=== PATIENT | female | born 1955 | race Hispanic/Latino ===

== ENCOUNTER → 2017-03-02 | Day surgery (SDC) | payer OTHER ==
[~2017-03-02] MED LIST: CALCIUM CARBON500 MG PO; CEFTRIAXONE SOD 1 GM VIAL ONE; DEXAMETHASONE SOD PHOS INJ 4 MG/ML VIAL IV ONE; FENTANYL CITRATE/PF 100MCG/2 ML INJ ONE; FORTEO2.4 ML INJ; LEVOTHYROXINE PO; LIDOCAINE HCL 2% LOCAL INJ 5 ML SDV VIAL INJ ONE; MIDAZOLAM HCL 2 MG/2 ML VIAL ONE; ONDANSETRON HCL INJ 2 MG/ML VIAL IV ONE; PROPOFOL IV EMULSION 10 MG/ML 20 ML VIAL IV ONE; SEVOFLURANE INHAL SOLN 250 ML PEN BTL INH ONE; VIT D PO
--- NOTE | 2017-03-02 16:39 | Diagnostic Imaging Report ---
PROCEDURE: X-RAY RETROGRADE PYELOGRAM COMPARISON: Renal ultrasound 02/24/17. INDICATIONS: Not provided. FINDINGS: Multiple intraoperative spot images of the abdomen and pelvis were obtained. There is retrograde opacification of the ureters after contrast injection. There are no filling defects or evidence of stricture. The renal collecting systems are unremarkable. Cumulative fluoro time: 00:00:22 Cumulative area dose product: 69.02 cGycm2 Cumulative air kerma: 2.66 mGy CONCLUSION: Retrograde pyelogram as described above. Dictated by: Sreedhar Miller M.D. on 03/02/2017 at 16:47 Electronically approved by: Sreedhar Miller M.D. on 03/02/2017 at 16:47
--- NOTE | 2017-03-03 12:09 | Operative Report ---
DATE OF PROCEDURE: March 02, 2017 PREOPERATIVE DIAGNOSES 1. Gross hematuria, remote. 2. Clinical signs and symptoms of cystitis without hematuria. POSTOPERATIVE DIAGNOSES 1. Gross hematuria, remote. 2. Clinical signs and symptoms of cystitis without hematuria. 3. Urethral stricture disease. PROCEDURES 1. Cystourethroscopy with urethral calibration and dilation of stricture (entirely separate procedure for urethral stricture disease). 2. Cystoscopy with hydrodistention (entirely separate procedure for clinical signs and symptoms of cystitis). 3. Cystourethroscopy with left ureter with calibration and left retrograde pyelogram (separate procedure performed for multiple chronic urinary tract infections and gross hematuria). 4. Cystourethroscopy of right ureter with calibration and right retrograde pyelogram (separate procedure for multiple chronic urinary tract infections, as well as gross hematuria, remote). 5. Supervision of fluoroscopy. 6. Interpretation of retrograde pyelographies. ANESTHESIA: General. ESTIMATED BLOOD LOSS: Minimal. COMPLICATIONS: None. INDICATIONS FOR PROCEDURE: Mrs. Gale is a 61-year-old female with remote gross hematuria who also has had multiple urinary tract infections. She and I had a long discussion about alternatives, risks and benefits including doing nothing, cystoscopy with IVP, retrograde pyelograms, renal ultrasound, hydrodistention. She voiced understanding of the options, alternatives, risks and benefits and she elected to undergo retrograde pyelogram to avoid the nephrotoxic risks and dye. She elected to proceed. PROCEDURE IN DETAIL: After informed consent was obtained, the patient was preoperatively identified. She was then placed under general anesthesia, and was placed in the dorsal lithotomy position and sterilely prepped and draped in the standard fashion for cystoscopy. An attempt was made to insert a 22.5-[place] cystoscope. This failed. The urethra was calibrated to 14-[place]ankan, and was dilated with sounds to 24-[place]ankan. A 22.5-[place]ank[place] cystoscope was inserted per urethra. Panendoscopy of the bladder revealed no tumors and no stones. There was squamous metaplasia of the trigone. Both ureteral orifices were in normal anatomic location and position and seen to efflux clear urine. Bilateral retrograde pyelograms were performed, which were normal. Hydrodistention was performed and revealed a ureteral capacity of 850 mL. No glomerulations and no Lawson's ulcers. The bladder was drained. The patient was awakened from anesthesia and transported to the recovery room in excellent condition. SUPERVISION OF FLUOROSCOPY, INTERPRETATION OF RETROGRADE PYELOGRAPHY: I was present throughout the entire procedure and I supervised the use of fluoroscopy. There was no radiologist present at any time during this procedure. Attention was turned toward the left and right ureteral orifices, catheterized with an 8-[place] cone-tipped catheter. In a retrograde fashion, contrast was injected revealing delicate ureters, delicate pelviceal systems. No evidence of filling defects. No evidence of hydronephrosis. IMPRESSION: Normal retrograde pyelograms. Job#: [id number]
== END | disposition home or self-care (01) ==
LOC: OR 12:52
PROVIDERS: ATTEND Urology
DX: N35.9 Urethral stricture, unspecified (principal); N39.0 Urinary tract infection, site not specified; N39.46 Mixed incontinence; E03.9 Hypothyroidism, unspecified; Z01.810 Encounter for preprocedural cardiovascular examination
CPT/HCPCS: 52281; 74420; 93005; C1758; J0696; J1100; J2001; J2250; J2405